=== PATIENT | male | born 1960 | race Caucasian/White ===

== ENCOUNTER → 2016-09-26 | Outpatient (CLI) | payer BC ==
[~2016-09-26] MED LIST: METO25TA3 PO; PRMT25 PO; SIMV20TA2 PO
--- NOTE | 2016-09-26 09:43 | DIAGNOSTIC IMAGING REPORT ---
SI JOINTS 3 OR MORE VIEWS CLINICAL HISTORY: SACROILIITIS. SI joint pain. COMPARISON STUDY: None. FINDINGS: No fractures identified within the sacrum. Bilateral sacroiliac joints are symmetric. No erosions identified. Disc space narrowing at the lumbosacral junction. IMPRESSION: No significant abnormality within the sacroiliac joints. Electronically signed by: Rojelio Montesinos M.D. 09/26/2016 9:41 AM Dictated Date/Time: 09/26/2016 9:40 AM
== END | disposition home or self-care (01) ==
LOC: C.RADBC 08:53
PROVIDERS: ATTEND Anesthesiology
DX: M46.1 Sacroiliitis, not elsewhere classified (principal); M54.5 Low back pain; I10 Essential (primary) hypertension; E78.5 Hyperlipidemia, unspecified; Z86.79 Personal history of other diseases of the circulatory system; Z91.030 Bee allergy status